=== PATIENT | male | born 1940 | race Caucasian/White ===

== ENCOUNTER 2018-12-29 06:50 | Day surgery (SDC) | payer MEDICARE ==
[2018-12-29] MEDS ORDERED: LIDOCAINE 2%/EPI 30 ML INJ (08:12)
[2018-12-29 08:26] LABS: ADD MAN DIFF? NO
[2018-12-29] MEDS ORDERED: POLYMYXIN/BACITRACIN 1L IRRIG (08:27)
[2018-12-29 08:30] LABS: BASOPHILS % 0.6 % (0.0-2.0); EOSINOPHILS # 0.4 10^3/ul (0.0-0.5); EOSINOPHILS % 5.6 % (0.0-7.0); HEMATOCRIT 35.5 % (42.0-52.0); HEMOGLOBIN 11.5 g/dl (14.0-18.0); LYMPHOCYTES # 1.2 10^3/ul (0.8-2.9); LYMPHOCYTES % 17.9 % (15.0-51.0); MEAN CORPUSCULAR HEMOGLOBIN 30.6 pg (29.0-33.0); MEAN CORPUSCULAR HGB CONC 32.4 g/dl (32.0-37.0); MEAN CORPUSCULAR VOLUME 94.4 fl (82.0-101.0); MEAN PLATELET VOLUME 11.6 fl (7.4-10.4); MONOCYTE # 0.9 10^3/ul (0.3-0.9); MONOCYTES % 13.6 % (0.0-11.0); NEUTROPHILS % 61.8 % (39.0-77.0); PLATELET COUNT 169 10^3/UL (140-415); RED BLOOD COUNT 3.76 10^6/ul (4.70-6.10); RED CELL DISTRIBUTION WIDTH 14.1 % (11.5-14.5)
[2018-12-29 08:30] LABS: WHITE BLOOD COUNT 6.5 10^3/ul (4.8-10.8)
[2018-12-29 08:50] LABS: PROTIME 13.3 Sec (11.9-14.9)
[2018-12-29 08:53] LABS: ALANINE AMINOTRANSFERASE 26 IU/L (13-69); ALBUMIN 3.5 g/dl (3.3-4.9); ALKALINE PHOSPHATASE 88 IU/L (42-121); ANION GAP 5 (5-13); ASPARTATE AMINO TRANSFERASE 23 IU/L (15-46); BILIRUBIN,INDIRECT 0.4 mg/dl (0-1.1); BILIRUBIN,TOTAL 0.4 mg/dl (0.2-1.3); CALCIUM 9.1 mg/dl (8.4-10.2); CARBON DIOXIDE 31 mmol/L (21-31); CHLORIDE 103 mmol/L (97-110); GLUCOSE 102 mg/dl (70-220); POTASSIUM 3.6 mmol/L (3.5-5.1); SODIUM 139 mmol/L (135-144); TOTAL PROTEIN 6.4 g/dl (6.1-8.1)
[2018-12-29] MEDS ORDERED: LIDOCAINE 1% (MDV) 20 ML INJ (08:56)
[2018-12-29 08:57] LABS: BLOOD UREA NITROGEN 44 mg/dl (7-20); CREATININE 1.38 mg/dl (0.61-1.24)
[2018-12-29] MEDS ORDERED: MIDAZOLAM 1 MG/ML 2 ML INJ (08:57)
[2018-12-29] MEDS ORDERED: FENTAnyl 50 MCG/ML VIAL (08:57)
[2018-12-29 09:02] LABS: PARTIAL THROMBOPLASTIN TIME 38.9 Sec (23.0-35.0)
[2018-12-29] MEDS ORDERED: HYDROmorphONE 2 MG/ML SYG (09:03)
[2018-12-29] MEDS ORDERED: morphine 2 MG INJ IV (10:00)
== END 2018-12-29 14:33 | disposition home or self-care (01) ==
LOC: SDS 06:50
DX: I45.9 Conduction disorder, unspecified (principal); I25.10 Atherosclerotic heart disease of native coronary artery without angina pectoris; R94.39 Abnormal result of other cardiovascular function study; Z45.010 Encounter for checking and testing of cardiac pacemaker pulse generator [battery]; Z79.02 Long term (current) use of antithrombotics/antiplatelets
CPT/HCPCS: 33228; 80053; 82962; 85025; 85610; 85730